=== PATIENT | male | born 1945 | race Caucasian/White ===

== ENCOUNTER 2019-03-13 01:12 | Inpatient (IN) ==
[2019-03-13] MEDS ORDERED: KETOROLAC 30 MG/1 ML VIAL IV STA (02:16)
[2019-03-13 02:26] LABS: Basophils % 0.1 % (0.0-0.8); Eosinophils # 0.1 10*3/uL (0.0-0.87); Eosinophils % 0.3 % (0.00-10.9); Hematocrit 48.7 VOL% (42.0-52.0); Hemoglobin 16.4 GM/DL (14.0-18.0); Immature Granulocytes % 0.6 %; Immature Granulocytes Absolute 0.13 #; Lymphocytes # 1.1 10*3/uL (1.4-4.0); Lymphocytes % 5.1 % (21.2-54.2); Mean Corpuscular HGB Conc 33.7 GM/DL (32-36); Mean Corpuscular Volume 97.2 FL (87-102); Monocytes % 6.3 % (1.7-12.7); Neutrophils % 87.6 % (38.7-73.9); Platelet Count 205 T/CUMM (130-400); Red Blood Count 5.01 MC/CUMM (3.8-5.5); White Blood Count 21.3 T/CUMM (4-12)
[2019-03-13 02:47] LABS: Albumin 3.7 G/DL (3.4-5.0); Bilirubin,Total 1.1 MG/DL (0.2-1.0); Osmolality,Calculated 272.4 MOS/KG (273-304); Total Protein 6.7 G/DL (6.4-8.3)
[2019-03-13 03:10] LABS: Anisocytosis 1+; Lymphocytes 6 % (20-55); Platelet Estimate Adequate; Segmented Neutrophils 87 % (50-85); Total Cells Counted 100
[2019-03-13] MEDS ORDERED: HYDROmorphone 2 MG/1 ML VIAL IV STA (03:27)
[2019-03-13] MEDS ORDERED: ONDANSETRON 4 MG/2 ML VIAL IV STA (03:27)
[2019-03-13] MEDS ORDERED: MORPHINE 4 MG/1 ML VIAL IV PRN (04:10)
[2019-03-13] MEDS: SODIUM CHLORIDE 0.9% 1,000 ML IV SCH ×3 (05:10→20:52)
[2019-03-13 05:11] LABS: Risk Ratio 2.96; VLDL CHOLESTEROL 30.8 MG/DL
[2019-03-13 05:43] LABS: Apearance,Urine CLEAR (Clear); Bilirubin,Urine Negative (Negative); Blood, Urine Negative (Negative); Glucose,Urine (UA) Negative (Negative); Ketones,Urine Negative (Negative); Mucus,Urine Occasional /LPF (Occasional); Nitrite,Urine Negative (Negative); Protein,Urine Negative; RBC,Urine 3 /HPF (0-4); Urine Color Yellow (Yellow); Urine Specific Gravity > 1.060 (1.001-1.035); Urine Urobilinogen < 2.0 EU/DL (0.2-1.0); WBC,Urine <1 /HPF (0-6)
[2019-03-13] MEDS ORDERED: hydroCHLOROthiazide 12.5 MG CAPSULE PO SCH (09:00)
[2019-03-13] MEDS: ASPIRIN EC 81 MG TABLET PO SCH (09:28)
[2019-03-13] MEDS: SOTALOL 80 MG TABLET PO SCH ×2 (09:28→20:56)
[2019-03-13] MEDS: LOSARTAN 50 MG TABLET PO SCH (09:29)
[2019-03-13] MEDS: APIXABAN 5 MG TABLET PO SCH ×2 (09:29→21:00)
[2019-03-13] MEDS: MEROPENEM 500 MG in SODIUM CHLORIDE 0.9% 100 ML IV SCH ×3 (09:34→19:15)
[2019-03-13] MEDS: PANTOPRAZOLE 40 MG VIAL IV SCH (12:03)
[2019-03-13] MEDS: HYDROmorphone 2 MG/1 ML VIAL IV PRN ×2 (16:04→21:10)
[2019-03-13] MEDS: ONDANSETRON 4 MG/2 ML VIAL IV PRN ×2 (16:05→21:12)
[2019-03-14] MEDS: HYDROmorphone 2 MG/1 ML VIAL IV PRN ×4 (01:55→20:57)
[2019-03-14] MEDS: ONDANSETRON 4 MG/2 ML VIAL IV PRN ×2 (01:57→07:08)
[2019-03-14] MEDS: MEROPENEM 500 MG in SODIUM CHLORIDE 0.9% 100 ML IV SCH ×4 (03:45→20:56)
[2019-03-14] MEDS: SODIUM CHLORIDE 0.9% 1,000 ML IV SCH ×4 (03:47→20:54)
[2019-03-14 05:21] LABS: Basophils % 0.1 % (0.0-0.8); Eosinophils % 0.2 % (0.00-10.9); Hemoglobin 14.7 GM/DL (14.0-18.0); Immature Granulocytes Absolute 0.26 #; Lymphocytes # 0.9 10*3/uL (1.4-4.0); Lymphocytes % 3.4 % (21.2-54.2); Mean Corpuscular HGB Conc 32.7 GM/DL (32-36); Mean Corpuscular Volume 100.9 FL (87-102); Mean Platelet Volume 9.8 FL (9.6-12.0); Monocytes % 7.7 % (1.7-12.7); Neutrophils % 87.6 % (38.7-73.9); Platelet Count 166 T/CUMM (130-400); Red Blood Count 4.46 MC/CUMM (3.8-5.5); Red Cell Distribution Width 13.4 % (9.3-17.3)
[2019-03-14 05:50] LABS: Hypochromasia Slight; Lymphocytes 2 % (20-55); Ovalocytes Slight; Platelet Estimate Adequate; Segmented Neutrophils 91 % (50-85); Total Cells Counted 100
[2019-03-14 05:56] LABS: Albumin 2.8 G/DL (3.4-5.0); Bilirubin,Total 1.9 MG/DL (0.2-1.0); Calcium 8.8 MG/DL (8.5-10.1); Osmolality,Calculated 279.7 MOS/KG (273-304); Total Protein 6.5 G/DL (6.4-8.3)
[2019-03-14] MEDS: PANTOPRAZOLE 40 MG VIAL IV SCH (08:48)
[2019-03-14] MEDS: APIXABAN 5 MG TABLET PO SCH ×2 (08:50→20:57)
[2019-03-14] MEDS: LOSARTAN 50 MG TABLET PO SCH (08:50)
[2019-03-14] MEDS: SOTALOL 80 MG TABLET PO SCH ×2 (08:50→20:58)
[2019-03-14] MEDS: ASPIRIN EC 81 MG TABLET PO SCH (08:50)
[2019-03-14] MEDS ORDERED: BENZOCAINE/MENTHOL LOZENGE 18/BOX PO PRN (11:18)
[2019-03-15] MEDS: MEROPENEM 500 MG in SODIUM CHLORIDE 0.9% 100 ML IV SCH ×4 (02:37→19:19)
[2019-03-15] MEDS: HYDROmorphone 2 MG/1 ML VIAL IV PRN ×3 (02:38→23:38)
[2019-03-15] MEDS: SODIUM CHLORIDE 0.9% 1,000 ML IV SCH ×3 (04:22→19:23)
[2019-03-15 06:24] LABS: Basophils % 0.2 % (0.0-0.8); Eosinophils # 0.1 10*3/uL (0.0-0.87); Eosinophils % 0.6 % (0.00-10.9); Hematocrit 42.1 VOL% (42.0-52.0); Hemoglobin 13.8 GM/DL (14.0-18.0); Immature Granulocytes % 0.7 %; Immature Granulocytes Absolute 0.12 #; Lymphocytes % 5.8 % (21.2-54.2); Mean Corpuscular HGB Conc 32.8 GM/DL (32-36); Mean Corpuscular Volume 101.9 FL (87-102); Monocytes % 8.9 % (1.7-12.7); Neutrophils % 83.8 % (38.7-73.9); Platelet Count 147 T/CUMM (130-400); Red Blood Count 4.13 MC/CUMM (3.8-5.5); Red Cell Distribution Width 13.2 % (9.3-17.3); White Blood Count 17.1 T/CUMM (4-12)
[2019-03-15 06:57] LABS: Albumin 2.5 G/DL (3.4-5.0); Bilirubin,Total 0.9 MG/DL (0.2-1.0); Calcium 8.8 MG/DL (8.5-10.1); Osmolality,Calculated 278.5 MOS/KG (273-304); Total Protein 6.2 G/DL (6.4-8.3)
[2019-03-15] MEDS: ASPIRIN EC 81 MG TABLET PO SCH (09:12)
[2019-03-15] MEDS: LOSARTAN 50 MG TABLET PO SCH (09:12)
[2019-03-15] MEDS: APIXABAN 5 MG TABLET PO SCH ×2 (09:12→20:15)
[2019-03-15] MEDS: SOTALOL 80 MG TABLET PO SCH ×2 (09:12→20:15)
[2019-03-15] MEDS: PANTOPRAZOLE 40 MG VIAL IV SCH (09:12)
[2019-03-16] MEDS: SODIUM CHLORIDE 0.9% 1,000 ML IV SCH ×2 (02:16→11:18)
[2019-03-16] MEDS: MEROPENEM 500 MG in SODIUM CHLORIDE 0.9% 100 ML IV SCH ×2 (02:23→09:22)
[2019-03-16 05:31] LABS: Basophils % 0.2 % (0.0-0.8); Eosinophils # 0.2 10*3/uL (0.0-0.87); Eosinophils % 1.2 % (0.00-10.9); Hematocrit 41.1 VOL% (42.0-52.0); Hemoglobin 13.3 GM/DL (14.0-18.0); Immature Granulocytes % 0.7 %; Immature Granulocytes Absolute 0.09 #; Lymphocytes # 1.2 10*3/uL (1.4-4.0); Lymphocytes % 9.7 % (21.2-54.2); Mean Corpuscular HGB Conc 32.4 GM/DL (32-36); Mean Corpuscular Volume 100.5 FL (87-102); Mean Platelet Volume 9.8 FL (9.6-12.0); Monocytes % 8.3 % (1.7-12.7); Neutrophils % 79.9 % (38.7-73.9); Platelet Count 157 T/CUMM (130-400); Red Blood Count 4.09 MC/CUMM (3.8-5.5); Red Cell Distribution Width 13.1 % (9.3-17.3); White Blood Count 12.3 T/CUMM (4-12)
[2019-03-16] MEDS: PANTOPRAZOLE 40 MG VIAL IV SCH (09:22)
[2019-03-16] MEDS: APIXABAN 5 MG TABLET PO SCH (09:22)
[2019-03-16] MEDS: ASPIRIN EC 81 MG TABLET PO SCH (09:22)
[2019-03-16] MEDS: SOTALOL 80 MG TABLET PO SCH (09:23)
[2019-03-16] MEDS: LOSARTAN 50 MG TABLET PO SCH (09:23)
[2019-03-16] MEDS ORDERED: LACTULOSE 20 GM/30 ML UDCUP PO ONE (10:38)
[2019-03-16 13:38] VITALS: BP 131/71
== END 2019-03-16 13:26 | disposition home or self-care (01) | DRG 440 ==
LOC: N.ED 01:12 → N.EDINP 01:12 → N.5E 05:03 → SUPCPDRO 13:33 → SUATTDRO 13:33
PROVIDERS: ADMIT Internal Medicine; ATTEND Emergency Medicine

== ENCOUNTER 2021-05-04 19:37 | Inpatient (IN) ==
[2021-05-04] MEDS ORDERED: ONDANSETRON 4 MG/2 ML VIAL IV STA (19:59)
[2021-05-04] MEDS ORDERED: PANTOPRAZOLE 40 MG VIAL IV STA (19:59)
[2021-05-04] MEDS ORDERED: SODIUM CHLORIDE 0.9% 500 ML IV STA (19:59)
[2021-05-04 20:25] LABS: Basophils % 0.1 % (0.0-0.8); Eosinophils % 0.1 % (0.00-10.9); Hematocrit 47.2 VOL% (42.0-52.0); Hemoglobin 15.5 GM/DL (14.0-18.0); Immature Granulocytes % 0.7 %; Immature Granulocytes Absolute 0.09 #; Lymphocytes # 0.6 10*3/uL (1.4-4.0); Lymphocytes % 4.7 % (21.2-54.2); Mean Corpuscular HGB Conc 32.8 GM/DL (32-36); Mean Corpuscular Volume 95.4 FL (87-102); Mean Platelet Volume 9.9 FL (9.6-12.0); Monocytes % 6.4 % (1.7-12.7); Platelet Count 164 T/CUMM (130-400); Red Blood Count 4.95 MC/CUMM (3.8-5.5); Red Cell Distribution Width 13.9 % (9.3-17.3); White Blood Count 13.5 T/CUMM (4-12)
[2021-05-04 20:55] LABS: Albumin 3.4 G/DL (3.4-5.0); Bilirubin,Total 6.9 MG/DL (0.20-1.00); Calcium 8.9 MG/DL (8.5-10.1); Osmolality,Calculated 280.8 MOS/KG (273-304); Potassium 3.3 MMOL/L (3.5-5.1); Total Protein 7.5 G/DL (6.4-8.2)
[2021-05-04] MEDS ORDERED: SODIUM CHLORIDE 0.9% 1,000 ML IV STA (21:02)
[2021-05-04 21:22] LABS: Lymphocytes 7 % (20-55); Macrocytosis Slight; Platelet Estimate Increased; Segmented Neutrophils 87 % (50-85); Total Cells Counted 100
[2021-05-05] MEDS ORDERED: SODIUM CHLORIDE 0.9% 1,000 ML IV SCH (01:00)
[2021-05-05] MEDS ORDERED: PIPERACILLIN/TAZOBACTAM 3,375 MG in SODIUM CHLORIDE 0.9% 100 ML IV STA (01:05)
[2021-05-05] MEDS: POTASSIUM CHLORIDE RIDER 10 MEQ/100 ML PREMIX IV SCH ×3 (02:05→09:30)
[2021-05-05 05:35] LABS: Basophils % 0.2 % (0.0-0.8); Eosinophils % 0.3 % (0.00-10.9); Hematocrit 43.2 VOL% (42.0-52.0); Hemoglobin 14.2 GM/DL (14.0-18.0); Immature Granulocytes % 0.8 %; Immature Granulocytes Absolute 0.09 #; Lymphocytes # 0.8 10*3/uL (1.4-4.0); Lymphocytes % 7.1 % (21.2-54.2); Mean Corpuscular HGB Conc 32.9 GM/DL (32-36); Mean Corpuscular Volume 96.4 FL (87-102); Mean Platelet Volume 9.8 FL (9.6-12.0); Monocytes % 10.5 % (1.7-12.7); Neutrophils % 81.1 % (38.7-73.9); Platelet Count 148 T/CUMM (130-400); Red Blood Count 4.48 MC/CUMM (3.8-5.5); White Blood Count 11.8 T/CUMM (4-12)
[2021-05-05 06:03] LABS: Albumin 2.8 G/DL (3.4-5.0); Bilirubin,Direct 6.18 MG/DL (0.0-0.20); Bilirubin,Indirect 1.5 MG/DL (0.0-1.0); Bilirubin,Total 7.7 MG/DL (0.20-1.00); Calcium 8.1 MG/DL (8.5-10.1); Osmolality,Calculated 277.8 MOS/KG (273-304); Potassium 3.3 MMOL/L (3.5-5.1); Total Protein 6.5 G/DL (6.4-8.2)
[2021-05-05] MEDS ORDERED: POTASSIUM CHLORIDE RIDER 10 MEQ/100 ML PREMIX IV PRN (07:45)
[2021-05-05] MEDS: PANTOPRAZOLE 40 MG VIAL IV SCH (09:15)
[2021-05-05] MEDS ORDERED: INFLUENZA VIRUS VACCINE 0.5 ML SYRINGE IM ONE (19:30)
[2021-05-06 06:43] LABS: Basophils % 0.3 % (0.0-0.8); Eosinophils # 0.1 10*3/uL (0.0-0.87); Eosinophils % 0.8 % (0.00-10.9); Hematocrit 45.8 VOL% (42.0-52.0); Hemoglobin 14.8 GM/DL (14.0-18.0); Immature Granulocytes % 0.5 %; Immature Granulocytes Absolute 0.06 #; Lymphocytes # 1.1 10*3/uL (1.4-4.0); Lymphocytes % 9.5 % (21.2-54.2); Mean Corpuscular HGB Conc 32.3 GM/DL (32-36); Mean Corpuscular Volume 98.5 FL (87-102); Mean Platelet Volume 10.1 FL (9.6-12.0); Monocytes % 9.6 % (1.7-12.7); Neutrophils % 79.3 % (38.7-73.9); Platelet Count 136 T/CUMM (130-400); Red Blood Count 4.65 MC/CUMM (3.8-5.5); Red Cell Distribution Width 14.2 % (9.3-17.3); White Blood Count 11.6 T/CUMM (4-12)
[2021-05-06 07:04] LABS: Albumin 2.9 G/DL (3.4-5.0); Bilirubin,Total 4.4 MG/DL (0.20-1.00); Calcium 8.9 MG/DL (8.5-10.1); Osmolality,Calculated 278.7 MOS/KG (273-304); Potassium 3.4 MMOL/L (3.5-5.1); Total Protein 7.1 G/DL (6.4-8.2)
[2021-05-06] MEDS ORDERED: POTASSIUM CHLORIDE 20 MEQ TABLET PO ONE (08:00)
[2021-05-06] MEDS: PANTOPRAZOLE 40 MG VIAL IV SCH (08:56)
[2021-05-06] MEDS: cefTRIAXone 1,000 MG in SODIUM CHLORIDE 0.9% 100 ML IV SCH (12:34)
[2021-05-06] MEDS: allopurinoL 300 MG TABLET PO SCH (12:35)
[2021-05-06] MEDS: SOTALOL 80 MG TABLET PO SCH ×2 (12:35→20:06)
[2021-05-06] MEDS: FUROSEMIDE 40 MG TABLET PO SCH (12:35)
[2021-05-06] MEDS: DILTIAZEM CD 180 MG CAPSULE PO SCH (20:06)
[2021-05-06] MEDS: PRAMIPEXOLE 0.25 MG TABLET PO SCH (20:06)
[2021-05-07 05:33] LABS: Basophils % 0.3 % (0.0-0.8); Eosinophils # 0.1 10*3/uL (0.0-0.87); Eosinophils % 1.4 % (0.00-10.9); Hemoglobin 13.8 GM/DL (14.0-18.0); Immature Granulocytes % 0.6 %; Immature Granulocytes Absolute 0.06 #; Lymphocytes # 1.2 10*3/uL (1.4-4.0); Lymphocytes % 12.3 % (21.2-54.2); Mean Corpuscular HGB Conc 32.1 GM/DL (32-36); Mean Corpuscular Volume 97.7 FL (87-102); Mean Platelet Volume 10.3 FL (9.6-12.0); Monocytes % 9.8 % (1.7-12.7); Neutrophils % 75.6 % (38.7-73.9); Platelet Count 136 T/CUMM (130-400); Red Cell Distribution Width 13.9 % (9.3-17.3); White Blood Count 9.9 T/CUMM (4-12)
[2021-05-07 05:43] LABS: INR 2.8
[2021-05-07 05:44] LABS: PT Patient Result 29.1 SECS (10.5-12.0)
[2021-05-07 05:50] LABS: Albumin 2.6 G/DL (3.4-5.0); Bilirubin,Total 2.1 MG/DL (0.20-1.00); Calcium 9.4 MG/DL (8.5-10.1); Potassium 3.9 MMOL/L (3.5-5.1); Total Protein 6.8 G/DL (6.4-8.2)
[2021-05-07 06:45] LABS: Hepatitis B Core IgM Quant 0.14 Index; Hepatitis B Surface Ag Quant < 0.10 Index; Hepatitis B Surface Ag Result Non-Reactive (NonReactive); Hepatitis C Virus Ab Quant 0.02 Index; Hepatitis C Virus Ab Result Non-Reactive (NonReactive)
[2021-05-07] MEDS ORDERED: INDOMETHACIN SUPP 50 MG SUPP RECTAL ONE (08:00)
[2021-05-07] MEDS: allopurinoL 300 MG TABLET PO SCH (08:29)
[2021-05-07] MEDS: FUROSEMIDE 40 MG TABLET PO SCH (08:29)
[2021-05-07] MEDS: PANTOPRAZOLE 40 MG VIAL IV SCH (08:29)
[2021-05-07] MEDS: SOTALOL 80 MG TABLET PO SCH ×2 (08:29→20:47)
[2021-05-07] MEDS ORDERED: PHYTONADIONE 10 MG/1 ML AMP SUBCUT ONE (08:30)
[2021-05-07 09:46] LABS: INR 1.1; PT Patient Result 12.1 SECS (10.5-12.0)
[2021-05-07] MEDS: cefTRIAXone 1,000 MG in SODIUM CHLORIDE 0.9% 100 ML IV SCH (10:12)
[2021-05-07] MEDS ORDERED: hydrALAZINE 20 MG/1 ML VIAL IV PRN (10:17)
[2021-05-07] MEDS ORDERED: SEVOFLURANE 1 UNIT/15 MINUTE INH ONE (12:45)
[2021-05-07] MEDS ORDERED: propofoL 200 MG/20 ML VIAL IV ONE ×2 (12:45→14:23)
[2021-05-07] MEDS ORDERED: ROCURONIUM 50 MG/5 ML VIAL IV ONE (12:45)
[2021-05-07] MEDS ORDERED: SUCCINYLCHOLINE 200 MG/10 ML VIAL ONE (12:45)
[2021-05-07] MEDS ORDERED: PHENYLEPHRINE 1 MG/10 ML SYRINGE IV ONE ×2 (12:45→14:17)
[2021-05-07] MEDS ORDERED: ETOMIDATE 40 MG/20 ML VIAL IV ONE (12:45)
[2021-05-07] MEDS ORDERED: fentaNYL 100 MCG/2 ML VIAL ONE (12:45)
[2021-05-07] MEDS ORDERED: LIDOCAINE 2% 5 ML VIAL ONE (12:45)
[2021-05-07] MEDS ORDERED: NALOXONE 0.4 MG/ML VIAL ONE (14:40)
[2021-05-07] MEDS ORDERED: LEVALBUTEROL 1.25 MG/3 ML NEB RESP TX ONE (14:54)
[2021-05-07] MEDS: LACTATED RINGERS 1,000 ML IV SCH (15:34)
[2021-05-07] MEDS: IBUPROFEN 400 MG TABLET PO PRN (16:35)
[2021-05-07] MEDS: PRAMIPEXOLE 0.25 MG TABLET PO SCH (20:47)
[2021-05-07] MEDS: DILTIAZEM CD 180 MG CAPSULE PO SCH (20:47)
[2021-05-07] MEDS ORDERED: MORPHINE 2 MG/1 ML SYRINGE IV PRN (20:50)
[2021-05-08 05:23] LABS: Basophils % 0.4 % (0.0-0.8); Eosinophils # 0.1 10*3/uL (0.0-0.87); Eosinophils % 1.1 % (0.00-10.9); Hematocrit 42.9 VOL% (42.0-52.0); Hemoglobin 13.7 GM/DL (14.0-18.0); Immature Granulocytes % 0.5 %; Immature Granulocytes Absolute 0.05 #; Lymphocytes # 1.2 10*3/uL (1.4-4.0); Lymphocytes % 11.7 % (21.2-54.2); Mean Corpuscular HGB Conc 31.9 GM/DL (32-36); Mean Corpuscular Volume 97.7 FL (87-102); Mean Platelet Volume 10.2 FL (9.6-12.0); Monocytes % 11.1 % (1.7-12.7); Neutrophils % 75.2 % (38.7-73.9); Platelet Count 155 T/CUMM (130-400); Red Blood Count 4.39 MC/CUMM (3.8-5.5); Red Cell Distribution Width 13.8 % (9.3-17.3); White Blood Count 10.1 T/CUMM (4-12)
[2021-05-08 05:35] LABS: Calcium 8.8 MG/DL (8.5-10.1); Osmolality,Calculated 281.5 MOS/KG (273-304); Potassium 3.5 MMOL/L (3.5-5.1)
[2021-05-08 05:39] LABS: Albumin 2.8 G/DL (3.4-5.0); Calcium 8.7 MG/DL (8.5-10.1); Osmolality,Calculated 280.5 MOS/KG (273-304); Potassium 3.7 MMOL/L (3.5-5.1); Total Protein 6.3 G/DL (6.4-8.2)
[2021-05-08] MEDS: IBUPROFEN 400 MG TABLET PO PRN ×2 (06:01→20:44)
[2021-05-08] MEDS: LACTATED RINGERS 1,000 ML IV SCH (07:23)
[2021-05-08] MEDS: SOTALOL 80 MG TABLET PO SCH ×2 (08:17→20:43)
[2021-05-08] MEDS: FUROSEMIDE 40 MG TABLET PO SCH (08:17)
[2021-05-08] MEDS: allopurinoL 300 MG TABLET PO SCH (08:18)
[2021-05-08] MEDS: PANTOPRAZOLE 40 MG VIAL IV SCH (08:18)
[2021-05-08] MEDS: cefTRIAXone 1,000 MG in SODIUM CHLORIDE 0.9% 100 ML IV SCH (10:13)
[2021-05-08] MEDS ORDERED: BUPIVACAINE MPF 0.25% 30 ML VIAL ONE (11:01)
[2021-05-08] MEDS ORDERED: TISSUE ADHESIVE 1 EACH APPLICATOR TOP ONE (11:02)
[2021-05-08] MEDS ORDERED: LIDOCAINE 1%/EPI INJ 20 ML VIAL ONE (11:02)
[2021-05-08] MEDS ORDERED: ROCURONIUM 50 MG/5 ML VIAL IV ONE (11:16)
[2021-05-08] MEDS ORDERED: fentaNYL 100 MCG/2 ML VIAL ONE (11:16)
[2021-05-08] MEDS ORDERED: ONDANSETRON 4 MG/2 ML VIAL ONE (11:16)
[2021-05-08] MEDS ORDERED: MIDAZOLAM 2 MG/2 ML VIAL ONE (11:16)
[2021-05-08] MEDS ORDERED: SEVOFLURANE 1 UNIT/15 MINUTE INH ONE (11:16)
[2021-05-08] MEDS ORDERED: LIDOCAINE 2% 5 ML VIAL ONE (11:16)
[2021-05-08] MEDS ORDERED: propofoL 200 MG/20 ML VIAL IV ONE (11:16)
[2021-05-08] MEDS ORDERED: SUCCINYLCHOLINE 200 MG/10 ML VIAL ONE (11:32)
[2021-05-08] MEDS ORDERED: PHENYLEPHRINE 1 MG/10 ML SYRINGE IV ONE ×2 (11:42→12:35)
[2021-05-08] MEDS ORDERED: NEOSTIGMINE 10 MG/10 ML VIAL ONE (11:42)
[2021-05-08] MEDS ORDERED: GLYCOPYRROLATE 0.4 MG/2 ML VIAL ONE (11:42)
[2021-05-08] MEDS ORDERED: ACETAMINOPHEN INJ 1,000 MG/100 ML VIAL IV ONE (11:47)
[2021-05-08] MEDS ORDERED: ONDANSETRON 4 MG/2 ML VIAL IV PRN (13:45)
[2021-05-08] MEDS: HYDROmorphone 2 MG/1 ML VIAL IV PRN ×3 (13:50→21:59)
[2021-05-08] MEDS: PRAMIPEXOLE 0.25 MG TABLET PO SCH (20:43)
[2021-05-08] MEDS: DILTIAZEM CD 180 MG CAPSULE PO SCH (20:43)
[2021-05-09] MEDS: HYDROmorphone 2 MG/1 ML VIAL IV PRN ×3 (01:45→20:19)
[2021-05-09 05:25] LABS: Basophils % 0.3 % (0.0-0.8); Eosinophils # 0.1 10*3/uL (0.0-0.87); Eosinophils % 0.9 % (0.00-10.9); Hematocrit 45.1 VOL% (42.0-52.0); Hemoglobin 14.4 GM/DL (14.0-18.0); Immature Granulocytes % 0.5 %; Immature Granulocytes Absolute 0.07 #; Lymphocytes # 1.2 10*3/uL (1.4-4.0); Lymphocytes % 9.5 % (21.2-54.2); Mean Corpuscular HGB Conc 31.9 GM/DL (32-36); Mean Platelet Volume 10.1 FL (9.6-12.0); Monocytes % 10.6 % (1.7-12.7); Neutrophils % 78.2 % (38.7-73.9); Platelet Count 161 T/CUMM (130-400); Red Blood Count 4.51 MC/CUMM (3.8-5.5); Red Cell Distribution Width 13.9 % (9.3-17.3); White Blood Count 12.9 T/CUMM (4-12)
[2021-05-09 05:46] LABS: Calcium 9.2 MG/DL (8.5-10.1); Osmolality,Calculated 269.4 MOS/KG (273-304); Potassium 3.6 MMOL/L (3.5-5.1)
[2021-05-09 05:52] LABS: Albumin 2.9 G/DL (3.4-5.0); Bilirubin,Direct 0.84 MG/DL (0.0-0.20); Bilirubin,Indirect 0.5 MG/DL (0.0-1.0); Bilirubin,Total 1.3 MG/DL (0.20-1.00); Total Protein 7.5 G/DL (6.4-8.2)
[2021-05-09] MEDS: IBUPROFEN 400 MG TABLET PO PRN (06:31)
[2021-05-09] MEDS: LACTATED RINGERS 1,000 ML IV SCH (08:36)
[2021-05-09] MEDS: SOTALOL 80 MG TABLET PO SCH ×2 (08:38→20:18)
[2021-05-09] MEDS: allopurinoL 300 MG TABLET PO SCH (08:38)
[2021-05-09] MEDS: FUROSEMIDE 40 MG TABLET PO SCH (08:38)
[2021-05-09] MEDS: PANTOPRAZOLE 40 MG VIAL IV SCH (08:38)
[2021-05-09] MEDS: cefTRIAXone 1,000 MG in SODIUM CHLORIDE 0.9% 100 ML IV SCH (09:56)
[2021-05-09] MEDS: AZITHROMYCIN INJ 500 MG in SODIUM CHLORIDE 0.9% 250 ML IV SCH (15:07)
[2021-05-09] MEDS: DILTIAZEM CD 180 MG CAPSULE PO SCH (20:18)
[2021-05-09] MEDS: PRAMIPEXOLE 0.25 MG TABLET PO SCH (20:18)
[2021-05-10] MEDS: HYDROmorphone 2 MG/1 ML VIAL IV PRN ×2 (04:21→20:12)
[2021-05-10 05:45] LABS: Basophils % 0.2 % (0.0-0.8); Eosinophils # 0.1 10*3/uL (0.0-0.87); Eosinophils % 0.9 % (0.00-10.9); Hematocrit 43.5 VOL% (42.0-52.0); Hemoglobin 13.5 GM/DL (14.0-18.0); Immature Granulocytes % 0.6 %; Immature Granulocytes Absolute 0.09 #; Lymphocytes # 1.2 10*3/uL (1.4-4.0); Lymphocytes % 8.8 % (21.2-54.2); Mean Corpuscular Volume 100.7 FL (87-102); Mean Platelet Volume 10.6 FL (9.6-12.0); Monocytes % 7.6 % (1.7-12.7); Neutrophils % 81.9 % (38.7-73.9); Platelet Count 189 T/CUMM (130-400); Red Blood Count 4.32 MC/CUMM (3.8-5.5); Red Cell Distribution Width 13.7 % (9.3-17.3)
[2021-05-10 06:06] LABS: Calcium 9.3 MG/DL (8.5-10.1); Osmolality,Calculated 270.2 MOS/KG (273-304); Potassium 3.5 MMOL/L (3.5-5.1)
[2021-05-10] MEDS: SOTALOL 80 MG TABLET PO SCH ×2 (08:12→20:11)
[2021-05-10] MEDS: PANTOPRAZOLE 40 MG VIAL IV SCH (08:13)
[2021-05-10] MEDS: allopurinoL 300 MG TABLET PO SCH (08:13)
[2021-05-10] MEDS: hydroCHLOROthiazide 12.5 MG CAPSULE PO SCH (08:13)
[2021-05-10] MEDS: AZITHROMYCIN INJ 500 MG in SODIUM CHLORIDE 0.9% 250 ML IV SCH (08:13)
[2021-05-10] MEDS: LOSARTAN 50 MG TABLET PO SCH (08:13)
[2021-05-10] MEDS: FUROSEMIDE 40 MG TABLET PO SCH (08:13)
[2021-05-10] MEDS: IBUPROFEN 400 MG TABLET PO PRN (08:20)
[2021-05-10] MEDS: ALBUTEROL/IPRATROPIUM 3 ML NEB RESP TX SCH ×4 (10:43→23:15)
[2021-05-10] MEDS: cefTRIAXone 1,000 MG in SODIUM CHLORIDE 0.9% 100 ML IV SCH (10:47)
[2021-05-10] MEDS ORDERED: FUROSEMIDE 40 MG/4 ML VIAL IV ONE (11:13)
[2021-05-10] MEDS: PRAMIPEXOLE 0.25 MG TABLET PO SCH (20:11)
[2021-05-10] MEDS: DILTIAZEM CD 180 MG CAPSULE PO SCH (20:11)
[2021-05-11] MEDS: ALBUTEROL/IPRATROPIUM 3 ML NEB RESP TX SCH ×3 (04:25→11:22)
[2021-05-11 05:49] LABS: Basophils # 0.1 10*3/uL (0.0-0.2); Basophils % 0.4 % (0.0-0.8); Eosinophils # 0.2 10*3/uL (0.0-0.87); Eosinophils % 1.6 % (0.00-10.9); Hematocrit 43.5 VOL% (42.0-52.0); Hemoglobin 13.6 GM/DL (14.0-18.0); Immature Granulocytes % 0.9 %; Lymphocytes # 1.2 10*3/uL (1.4-4.0); Lymphocytes % 10.1 % (21.2-54.2); Mean Corpuscular HGB Conc 31.3 GM/DL (32-36); Mean Platelet Volume 10.5 FL (9.6-12.0); Monocytes % 8.5 % (1.7-12.7); Neutrophils % 78.5 % (38.7-73.9); Platelet Count 207 T/CUMM (130-400); Red Blood Count 4.35 MC/CUMM (3.8-5.5); Red Cell Distribution Width 13.8 % (9.3-17.3); White Blood Count 11.5 T/CUMM (4-12)
[2021-05-11 06:26] LABS: Albumin 2.7 G/DL (3.4-5.0); Osmolality,Calculated 278.5 MOS/KG (273-304); Potassium 3.6 MMOL/L (3.5-5.1); Total Protein 6.4 G/DL (6.4-8.2)
[2021-05-11] MEDS: FUROSEMIDE 40 MG TABLET PO SCH (09:14)
[2021-05-11] MEDS: SOTALOL 80 MG TABLET PO SCH (09:14)
[2021-05-11] MEDS: hydroCHLOROthiazide 12.5 MG CAPSULE PO SCH (09:14)
[2021-05-11] MEDS: AZITHROMYCIN INJ 500 MG in SODIUM CHLORIDE 0.9% 250 ML IV SCH (09:14)
[2021-05-11] MEDS: allopurinoL 300 MG TABLET PO SCH (09:14)
[2021-05-11] MEDS: LOSARTAN 50 MG TABLET PO SCH (09:14)
[2021-05-11] MEDS: PANTOPRAZOLE 40 MG VIAL IV SCH (09:15)
[2021-05-11] MEDS: cefTRIAXone 1,000 MG in SODIUM CHLORIDE 0.9% 100 ML IV SCH (10:21)
[2021-05-11 12:05] VITALS: BP 136/83
[2021-05-11] MEDS ORDERED: CEFUROXIME 500 MG TABLET PO SCH (21:00)
== END 2021-05-11 13:08 | disposition home or self-care (01) | DRG 417 ==
LOC: EDUNIT# → EDBD → N.ED 19:37 → INTOOBSV 05-05 00:54 → SUATTDRO 05-05 00:54 → OBSVTOIN 05-05 00:54 → N.EDINP 05-05 00:54 → N.3E 05-05 17:00
PROVIDERS: ADMIT Internal Medicine; ATTEND Internal Medicine
PROC: ERCPWSP (ICD-10-PCS; 2021-05-07 13:05)
PROC: LAPCHOL (2021-05-08 11:20)